=== PATIENT | female | born 1970 | race Caucasian/White ===

== ENCOUNTER 2018-10-03 14:24 | Outpatient (CLI) | payer BC ==
--- NOTE | 2018-10-03 15:14 | RAD ---
EXAM: 2 views of the left femur HISTORY: Left thigh pain at night COMPARISON: None FINDINGS: There is no evidence of acute fracture or dislocation. No soft tissue swelling is seen. No degenerative changes are seen in the hip. IMPRESSION: No evidence of acute osseous abnormality.
== END 2018-10-03 14:25 | disposition home or self-care (01) ==
LOC: MADRAD 14:24
PROVIDERS: ATTEND General Practice
DX: M79.605 Pain in left leg (principal)